=== PATIENT | female | born 1980 | race Caucasian/White ===

== ENCOUNTER → 2017-10-24 | Outpatient (CLI) | payer BC, OTHER ==
[~2017-10-24] MED LIST: ACET-1325 PO; DORZ2SOL OPB; POTA99TA PO; VALA500T60 PO; VLT500 PO
== END | disposition home or self-care (01) ==
LOC: C.PAPS 17:48
PROVIDERS: ATTEND Physician Assistant
DX: Z01.419 Encounter for gynecological examination (general) (routine) without abnormal findings (principal)

== ENCOUNTER 2017-11-08 12:43 | Emergency (ER) | payer BC ==
[~2017-11-08] VITALS: Ht 165.1 cm; Wt 77.6 kg
[~2017-11-08 12:43] MED LIST changes: -VALA500T60 PO
[2017-11-08 12:47] VITALS: BP 146/94; TEMP 36.8; Ht 165.1 cm; Wt 77.6 kg
--- NOTE | 2017-11-08 13:22 | DIAGNOSTIC IMAGING REPORT ---
ADDENDUM Upon further review and discussion with physician's credit assistant Shoaib Valentine, a calcification along the radial aspect of the proximal interphalangeal joint of the fourth finger is demonstrated. This does not have a clear donor site from either the base of the middle phalanx or the head of the proximal phalanx. This is also not visible on lateral view to suggest a volar or dorsal avulsion fracture. However, this is suspicious for an avulsion injury. Correlate for point tenderness. Electronically signed by: Stone Gupta M.D. 11/08/2017 1:36 PM Dictated Date/Time: 11/08/2017 1:35 PM ORIGINAL REPORT L HAND MIN 3 VIEWS ROUTINE CLINICAL HISTORY: 37 years-old Female presenting with fall; L hand injury. TECHNIQUE: Frontal, oblique, and lateral views of the left hand were obtained. COMPARISON: None. FINDINGS: No acute fracture or malalignment. No degenerative change. No radiographic evidence of soft tissue abnormality. IMPRESSION: No acute osseous injury of the left hand. Electronically signed by: Stone Gupta M.D. 11/08/2017 1:21 PM Dictated Date/Time: 11/08/2017 1:20 PM
[2017-11-08] MEDS ORDERED: VALA500T60 PO (14:01)
--- NOTE | 2017-11-08 14:25 | DIAGNOSTIC IMAGING REPORT ---
L SHOULDER MIN 2 VIEWS ROUTINE CLINICAL HISTORY: 37 years-old Female presenting with fall; L elbow and shoulder pain. TECHNIQUE: Internal rotation, external rotation, Grashey views of the left shoulder were obtained. COMPARISON: Correlation made to chest x-ray from 05/05/2014. FINDINGS: Glenohumeral and acromioclavicular joints congruent. No degenerative change. No acute fracture or malalignment. No radiographic soft tissue abnormality. Visualized portions of the lungs are clear. IMPRESSION: No acute osseous injury of the left shoulder. Electronically signed by: Stone Gupta M.D. 11/08/2017 2:23 PM Dictated Date/Time: 11/08/2017 2:22 PM
--- NOTE | 2017-11-08 14:26 | DIAGNOSTIC IMAGING REPORT ---
L ELBOW MIN 3 VIEWS ROUTINE HISTORY: 37 years-old Female same acute left elbow pain status post fall COMPARISON: None available TECHNIQUE: 3 views of the left elbow FINDINGS: No acute fracture, dislocation or significant degenerative changes. Soft tissues are unremarkable. No large joint effusion or opaque foreign body. IMPRESSION: No acute bony abnormality. The above report was generated using voice recognition software. It may contain grammatical, syntax or spelling errors. Electronically signed by: Adam Pereira M.D. 11/08/2017 2:24 PM Dictated Date/Time: 11/08/2017 2:23 PM
[2017-11-08 14:35] VITALS: PULSE 75; O2SAT 100
--- NOTE | 2017-11-09 12:50 | EMERGENCY ROOM VISIT NOTE ---
ED Visit Note First contact with patient: 12:46 Chief Complaint: Fall. History of Present Illness: Ms. Mccray is a 37-year-old white female who ambulates into the ED following a fall complaining of left middle and ring finger pain. Patient reports she has a history of visual impairment. She reports she was running after her son this morning and slipped and fell on a roadway. Before the fall she reports she had no lightheaded or dizziness. At the time of the fall she did struck her left frontal area on the roadway but did not have any loss of consciousness. She reports after striking her head she had a transient episode where she could not hear out of her left ear that lasted first few seconds and has subsequently resolved and not returned. She reports she's been having no signs of head injury since her fall including headache, abnormal neurological symptoms or nausea/vomiting. Additionally at the time of the fall she reports she fell on her left hand and describes a hyperextension injury to the ring, middle and little fingers. Since the injury she has having her most prominent pain throughout the middle and ring fingers. She describes this pain as a throbbing sensation at rest and sharp with palpation. She rates her discomfort 2/10. Her middle and ring finger pain worsens with flexion and extension of the MCP and PIP joint and palpation of the proximal phalanx. She has not identified any alleviating factors related to the pain. She did report immediately after the injury she did take an Aleve tablet. She denies any associated symptoms including neck pain, thoracic back pain, left shoulder/elbow/wrist pain, chest pain, shortness of breath, abdominal pain, lower extremity pain. After patient's x-rays and splinting I was called back to her room and patient was now reporting that she was having anterior elbow pain over the ulnar head and shoulder pain over the anterior humeral head. She reports these pains as an achy sensation and she expresses concern about possible injury. She also rates these discomfort 2/10. Both of her pain worsened with palpation but not with movement. Review of Systems: As noted above in history of present illness. All body systems were reviewed and found to be negative as noted above. Past Medical History: As previously noted and autosomal recessive bestrophinapathy Current Medications: Medications Dose Route/Sig Max Daily Dose Days Date Category Valtrex (Valacyclovir HCl) 500 Mg Tab 1 Tab PO DAILY 30 11/08/17 Reported Trusopt (Dorzolamide Hcl) 2 % Radhika 1 Drop OPB BID 05/05/14 Reported Acetazolamide 250 Mg Tab 250 Mg PO BID 05/05/14 Reported Allergies to Medications: Patient denies. Social History: Patient is currently employed; she feels safe in her home environment; she denies tobacco use and admits to alcohol use. Tetanus Immunization Status: Patient reports up-to-date. Physical Examination: Vital Signs: Date Time Temp Pulse Resp B/P (MAP) Pulse Ox O2 Delivery O2 Flow Rate FiO2 11/08/17 14:35 75 16 100 11/08/17 12:47 36.8 83 16 146/94 100 Room Air GENERAL: 37-year-old female in mild to moderate distress due to pain, nontoxic- appearing, afebrile and hemodynamically stable. NEUROLOGICAL: Awake, alert and oriented to person, place and time. Answering questions appropriately and following commands. Normal gait. Good hand eye coordination. Radial nerves II through XII grossly intact. Able to spell and count backwards. Good short-term and long-term recall. Negative pronator drift. SKIN: Warm, dry and pink. Left Hand: Superficial abrasions over the thenar eminence and distal ring finger. No active bleeding. HEENT: Atraumatic and normocephalic. Skull: Contusion in the right frontal area at the hairline measuring approximately 2 cm in diameter. There is mild tenderness in this area but throughout the head there is no bony crepitus, deformity. No raccoon's eyes or damon signs. No drainage from the ears of the nostril; no hemotympanum. Face: No bony deformity, bony crepitus, swelling or ecchymosis. PERRLA. EOMI without nystagmus. Sclera white and conjunctiva pink. No malocclusion. No intraoral trauma. Airway patent. Speech is normal and clear. BACK: No tenderness over the bony cervical and thoracic spine. Full range of motion of the cervical spine. No CVA tenderness. LEFT UPPER EXTREMITY: No gross bony deformity. Mild tenderness over the humeral head without soft tissue injury, bony deformity or crepitus. No tenderness over the acromioclavicular joint or scapula. Full range of motion of the shoulder against resistance. Mild tenderness over the proximal ulna without bony deformity or crepitus. No swelling or ecchymosis. Full range of motion in flexion and extension of the elbow and pronation and supination of the forearm against resistance. No tenderness throughout the wrist. Full range of motion against resistance with all movements of the wrist. Soft tissue injury is noted of the hand. In addition to the abrasions patient has contusions over the anterior posterior aspect of the middle, ring and little fingers. No gross bony deformity. The middle and ring finger have tenderness over the middle phalanxes, the DIP joint, the proximal phalanxes and minimally in the MCP joints. Because of her pain and swelling she has decreased range of motion in all movements of the MCP, PIP and DIP joint of the middle, ring and little fingers. The fingers and fingernail beds are warm and pink and capillary refill is brisk. She was able to distinguish light sensations to all dermatomes of the fingers. ED Course: Patient is assessed as noted above. Patient's medication list was reviewed. Patient was offered pain medication and refused but did accept denies back. Left Hand X-Rays: A read by myself and the radiologist there is a calcification along the radial aspect of the proximal interphalangeal joint of the ring finger of questionable etiology but is concerning for a possible avulsion injury. Left Shoulder X-Rays: Were read by myself and the radiologist showing no acute fractures or dislocations. Left Elbow X-Rays: Were read by myself and the radiologist shows no acute fracture or dislocations. No joint effusions or foreign bodies. Patient's middle, ring and little finger were splinted. Patient was educated about today's findings and instructed on her treatment plan ; she verbalized understanding and agreement with this plan. Clinical Impression: Fall. Left frontal scalp contusion. Left ring finger avulsion fracture. Left hand and finger contusions and abrasions. Left elbow pain. Shoulder pain. Disposition: Patient discharged home in stable condition; prior to departure she was reassessed and subjectively reported she was pain-free. Plan: Comfort measures were discussed with the patient including rest, ice, splint use and ibuprofen and acetaminophen. Patient was encouraged to follow-up with her orthopedic physician for recheck of her possible avulsion fracture in 5-6 days. Patient was educated on signs of head injury. Patient is encouraged to return to the ED for any signs of head injury, uncontrolled pain or any new/concerning symptoms.
== END 2017-11-08 14:36 | disposition home or self-care (01) ==
LOC: C.EDB 12:44 → C.EDD 14:36
DX: S00.03XA Contusion of scalp, initial encounter (principal); S60.419A Abrasion of unspecified finger, initial encounter; M25.522 Pain in left elbow; M25.519 Pain in unspecified shoulder; W19.XXXA Unspecified fall, initial encounter

== ENCOUNTER → 2018-02-13 | Outpatient (CLI) | payer BC ==
[~2018-02-13] MED LIST changes: -POTA99TA PO; +VALA500T60 PO; -VLT500 PO
[2018-02-13 11:55] LABS: ALBUMIN 3.8 gm/dl (3.4-5.0); ALT/SGPT 19 U/L (12-78); AST/SGOT 19 U/L (15-37); BLOOD UREA NITROGEN 14 mg/dl (7-18); CALCIUM 9.1 mg/dl (8.5-10.1); CARBON DIOXIDE 25 mmol/L (21-32); CREATININE 0.81 mg/dl (0.60-1.20); GLUCOSE 87 mg/dl (70-99); SODIUM 138 mmol/L (136-145)
[2018-02-13 11:58] LABS: ALKALINE PHOSPHATASE 69 U/L (45-117); CHOLESTEROL 197 mg/dl (0-200); LDL CHOLESTEROL CALCULATED 103 mg/dl; TOTAL PROTEIN 7.4 gm/dl (6.4-8.2)
== END | disposition home or self-care (01) ==
LOC: C.LABBC 08:01
PROVIDERS: ATTEND Nurse Practitioner Adult Health
DX: Z00.00 Encounter for general adult medical examination without abnormal findings (principal); Q99.8 Other specified chromosome abnormalities